=== PATIENT | female | born 1980 ===

== ENCOUNTER 2019-01-18 03:56 | Emergency (ER) | payer SELFPAY ==
[~2019-01-18] VITALS: Ht 152.4 cm; Wt 54.5 kg
[2019-01-18 03:59] VITALS: Ht 152.4 cm; Wt 54.5 kg
[2019-01-18] MEDS ORDERED: NAPROSYN500 MG PO (04:26)
[2019-01-18] MEDS ORDERED: CLEOCIN HCL300 MG PO (04:26)
[2019-01-18 04:40] VITALS: BP 114/70
== END 2019-01-18 04:40 | disposition home or self-care (01) ==
LOC: D.ER 03:56
DX: H60.11 Cellulitis of right external ear (principal)